=== PATIENT | female | born 1940 | race Caucasian/White ===

== ENCOUNTER 2016-12-21 06:00 | Inpatient (IN) | payer MEDICARE, BC ==
[~2016-12-21] VITALS: Ht 167.6 cm; Wt 65.4 kg
[~2016-12-21 06:00] MED LIST: AMBIEN10 MG OR; ASA LO-DOSE81 MG OR; BACTRIM DS1 TAB PO; BL ADULT ASA81 MG OR; BLEPH-1010 % OU; CARDIZEM CD240 MG PO; CARTIA XT120 MG/24 PO; COREG6.25 MG OR; COUMADIN2.5 MG OR; COUMADIN3 MG OR; COUMADIN3 MG PO; COUMADIN4 MG PO; DILTIAZEM OR; DILTIAZEM120 MG PO; DILTIAZEM240 M1 OR; ESCITALOPRAM OX10 MG PO; FLEXERIL OR; FLEXERIL5 M1 PO; FUROSEMIDE20 MG PO; GABAPENTIN100 MG PO; HYDROCO/APAP1 T13 PO; KLOR-CON M2020 MEQ PO; LANOXIN0.125 MG OR; LANSOPRAZOLE15 MG PO; METOPROL TAR25 M1 PO; METOPROL TAR25 MG PO; NEXIUM40 M1 OR; OXYCODO-APAP1 TA2 PO; PLAVIX75 MG OR; POTASSIUM CHLO10 ME1 PO; PRAVACHOL40 MG OR; PRAVASTATIN80 MG OR; PRILOSEC20 MG OR; PRILOSEC20 MG PO; PROTONIX40 MG OR; PYRIDIUM200 MG PO; RISPERIDONE0.5 MG PO; SOTALOL AF120 MG OR; TOPROL XL25 MG OR; TYLENOL500 MG OR; WARFARIN1 MG OR; XANAX0.25 MG PO; XANAX0.5 MG OR; XANAX0.5 MG PO; ZETA PO; ZOCOR40 MG OR
--- NOTE | 2016-12-21 06:00 | NUR ---
PT. IMMEDIATELY TO TREATMENT ROOM #10 VIA EMS ON ARRIVAL TO ED
[2016-12-21 06:25] LABS: HEMATOCRIT 38.2 % (37.0-47.0); HEMOGLOBIN 12.6 g/dl (12.0-16.0); IMMATURE GRANULOCYTES 0.5 % (0.0-1.0); MEAN CELL VOLUME 83.6 fL CALC (80.0-100.0); MEAN CORPUSCULAR HGB 27.6 pG CALC (26.0-32.0); NEUT# 11.47 thou/uL (2.00-7.15); RED BLOOD COUNT 4.57 mill/uL (4.20-5.60); RED CELL DISTRI WIDTH 15.7 % (11.5-15.5)
[2016-12-21] MEDS ORDERED: COUMADIN2 MG PO (06:28)
[2016-12-21 06:39] LABS: ALBUMIN 4.5 g/dL (3.2-5.0); ALKALINE PHOSPHATASE 111 u/l (38-126); ANION GAP 17 (6-22 (CALC)); BUN 15 mg/dL (8-23); BUN/CREATININE RATIO 17 (12-20 (CALC)); CALCIUM 9.7 mg/dL (8.4-10.2); CARBON DIOXIDE 24 mmol/l (22-30); CHLORIDE 101 mmol/l (95-108); CREATININE 0.9 mg/dL (0.5-1.0); GFR > 60 ML/MIN (>=60 (CALC)); GFR FOR AFR.AMER. > 60 ML/MIN (>=60 (CALC)); GLUCOSE 150 mg/dL (82-115); SGOT/AST 36 u/l (9-36); SGPT/ALT 28 u/l (11-66); SODIUM 138 mmol/l (137-146); TOTAL PROTEIN 7.8 g/dL (6.3-8.2)
--- NOTE | 2016-12-21 06:47 | NUR ---
RETURNED FROM CT WITH C COLLAR AND ON BACK BOARD VIA [facility]
--- NOTE | 2016-12-21 06:48 | NUR ---
PT RETURNED FROM CT ALERT AND CONFUSED PER USUAL. RT EYE SWOLLEN SHUT AND ECCYMOSIS NOTED TO RT EYELID AND ENTIRE ORBIT. CARDAIC MONITOR APPLIED. VSS. NOTED ABRAISED AREA TO RT KNEE WITHOUT BRUISING. RT NARE HAS DRIED BLOOD, NO ACITVE BLEEDING
--- NOTE | 2016-12-21 07:05 | NUR ---
OBTAINED URINE BY STRAIGHT CATH,PT TOLERATED WELL, CONTINUES TO BE IMMOBILIZED
[2016-12-21 07:23] LABS: URINE BILIRUBIN - DIPSTICK NEGATIVE (NEGATIVE); URINE BLOOD DIPSTICK LARGE (NEGATIVE); URINE CLARITY CLEAR; URINE COLOR YELLOW; URINE GLUCOSE - DIPSTICK NEGATIVE (NEGATIVE); URINE KETONE TRACE mg/dL (NEGATIVE); URINE PROTEIN - DIPSTICK 30 mg/dL (NEG-TRACE); URINE SPECIFIC GRAVITY 1.015; URINE UROBILINOGEN - DIPSTICK 0.2 E.U./dL (0.2)
[2016-12-21 07:25] LABS: URINE LEUK ESTERASE SMALL (NEGATIVE)
[2016-12-21 07:29] LABS: URINE NITRITE - DIPSTICK NEGATIVE (Negative)
[2016-12-21 07:32] LABS: URINE BACTERIA RARE hpf; URINE EPITHELIAL CELLS RARE EPI/hpf (0-FEW)
[2016-12-21 07:39] LABS: INTERNATIONAL NORMALIZED RATIO 2.6 RATIO (0.7-1.3); PROTHROMBIN TIME 29.8 SECONDS (9.0-12.5)
--- NOTE | 2016-12-21 08:01 | NUR ---
KEENAN SCANNED BUT HELD UNTIL BC DRAWN
--- NOTE | 2016-12-21 08:01 | NUR ---
FAMILY INFORMED OF ADMISSION AND PT MADE COMFORTABLE. ALL JEWELRY INCLUDING EARRINGS,RINGS AND NECKLACE GIVEN TO SON AND DAUGHTER IN LAW
--- NOTE | 2016-12-21 08:33 | NUR ---
INITIATED IV FLUIDS AND ROCEPHINE
--- NOTE | 2016-12-21 08:54 | NUR ---
CALLED REPORT TO LISA CAMPUZANO
--- NOTE | 2016-12-21 09:00 | NUR ---
PT TO ROOM VIA STRETCHER ACCOMPANIED BY STAFF; PT AMBULATORY WITH MIN ASSIST; PT A/ ORIENTED TO NAME ONLY, REORIENTATION TO TIME AND PLACE UNSUCCESSFUL; PT HAD UNWITNESS FALL AT LONG TERM; BRUISING NOTED TO RT EYE AND RT SHOULDER; RT KNEE WITH [facility] [employer] OPERATIONS SPECIALIST; PT C/O PAIN TO RT FOOT AND CHEST AREA, UNABLE TO VERBALIZE PAIN SCALE; BED ALARM IN PLACE FOR PT SAFETY; TELE MONITOR IN PLACE; CALL BUCHANAN WITHIN REACH; WILL CONTINUE TO MONITOR.
--- NOTE | 2016-12-21 09:03 | NUR ---
URINE IS CLEAR USED THE BED HARRELL 300CC
--- NOTE | 2016-12-21 09:10 | NUR ---
PT TRANSPORTED TO [facility] VIA STRETCHER ON TELEMETRY IN STABLE CONDITION
[2016-12-21 09:24] VITALS: BP 178/68
--- NOTE | 2016-12-21 12:30 | NUR ---
DR. SONG IN TO SEE PT; PLAN OF CARE DISCUSSED WITH FAMILY
[2016-12-21 12:46] VITALS: BP 129/64
[2016-12-21 15:07] VITALS: BP 141/55
--- NOTE | 2016-12-21 16:11 | NUR ---
PT HAD 2 EPISODES OF 8 BEAT RUN VTACH; VSS; PT STABLE; C/O PAIN R/T TO FALL THIS AM; MD NOTIFIED; CALL BUCHANAN WITHIN REACH; BED ALARM IN PLACE FOR SAFETY; WILL CONTINUE TO MONITOR.
--- NOTE | 2016-12-21 18:17 | NUR ---
PT ASSISTED BACK TO BED; BED ALARM IN PLACE FOR SAFETY; SON IN TO VISIT; CALL BUCHANAN WITHIN REACH; WILL CONTINUE TO MONITOR.
--- NOTE | 2016-12-21 19:15 | NUR ---
RESPONDED TO PATIENT BED ALARM AND PATIENT ASSISTED TO BSC TO VOID CLEAR YELLOW URINE. ASSISTED BACK TO BED. PATIENT WITH HISTORY OF DEMENTIA NAD FALLS. PATIENT WITH ECCYMOTTIC RIGHT EYE AND RIGHT SHOULDER WITH [facility] TO RIGHT KNEE. PATIENT WITH IV SITE TO RIGHT AC NS 50CC/HR. SITE APPEARS HEALTHY AT THIS TIME. PATIENT C/O SEVERE HEADACHE AND BACK PAIN. WILL MEDICATED. PATIENT IS IMPULSIVE AND CONFUSED TO PLACE AND TIME. BED ALARMS IN PLACE FOR PATIENT SAFETY. CALL LIGHT IN REACH. WILL CONT TO MONITOR.
[2016-12-21 19:40] VITALS: BP 156/70
--- NOTE | 2016-12-22 00:04 | NUR ---
PATIENT APPEARS SLEEPING AT THIS TIME WITH EYES CLOSED. BED ALARMS IN PLACE FOR PATIENT SAFETY. CALL LIGHT IN REACH. WILL CONT TO MONITOR.
[2016-12-22 00:15] VITALS: BP 145/70
--- NOTE | 2016-12-22 00:53 | NUR ---
PATIENT MEDICATED FOR PAIN WITH PERCOCET ORDERED. PATIENT TURNED AND REPOSITIONED ON SIDE. BED ALARMS IN PLACE FOR PATIENT SAFETY. CALL LIGHT IN REACH. WILL CONT TO MONITOR.
--- NOTE | 2016-12-22 04:00 | NUR ---
PATIENT RESTING IN BED AND APPEARS SLEEPING AT THIS TIME. CALL LIGHT IN REACH. WILL CONT TO MONITOR.
[2016-12-22 05:45] VITALS: BP 132/78
[2016-12-22 06:24] LABS: HEMATOCRIT 34.1 % (37.0-47.0); HEMOGLOBIN 11.1 g/dl (12.0-16.0); IMMATURE GRANULOCYTES 0.8 % (0.0-1.0); MEAN CELL VOLUME 84.6 fL CALC (80.0-100.0); MEAN CORPUSCULAR HGB 27.5 pG CALC (26.0-32.0); MEAN CORPUSCULAR HGB CONC 32.6 g/L CALC (32.0-36.0); NEUT# 4.9 thou/uL (2.00-7.15); RED BLOOD COUNT 4.03 mill/uL (4.20-5.60); RED CELL DISTRI WIDTH 15.7 % (11.5-15.5)
[2016-12-22 06:38] LABS: ANION GAP 12 (6-22 (CALC)); BUN 10 mg/dL (8-23); BUN/CREATININE RATIO 14 (12-20 (CALC)); CARBON DIOXIDE 26 mmol/l (22-30); CHLORIDE 107 mmol/l (95-108); CREATININE 0.7 mg/dL (0.5-1.0); GFR > 60 ML/MIN (>=60 (CALC)); GFR FOR AFR.AMER. > 60 ML/MIN (>=60 (CALC)); GLUCOSE 101 mg/dL (82-115); POTASSIUM 3.6 mmol/l (3.5-5.1); SODIUM 140 mmol/l (137-146)
[2016-12-22 07:10] LABS: INTERNATIONAL NORMALIZED RATIO 2.2 RATIO (0.7-1.3); PROTHROMBIN TIME 25.2 SECONDS (9.0-12.5)
[2016-12-22 08:25] VITALS: BP 102/61
[2016-12-22 10:54] VITALS: BP 133/78
[2016-12-22] MEDS ORDERED: KEFLEX500 MG PO (12:22)
--- NOTE | 2016-12-22 13:29 | NUR ---
Discharge instructions given. Patient verbalizes understanding of same. Discharged in stable condition via Wheelchair to [facility] with [facility]AFF. All belongings sent with pt.
[2016-12-23] MEDS ORDERED: PREDNISONE10 MG PO (14:35)
[2016-12-23] MEDS ORDERED: VENTOLIN HFA IN (14:35)
[2016-12-23] MEDS ORDERED: ZITHROMAX250 MG PO (14:35)
== END 2016-12-22 13:28 | DRG 565 ==
LOC: ENPENDDIS → ED 06:00 → ED-I 07:55 → ED 08:25 → MS2 08:26
PROVIDERS: Emergency Medicine; ADMIT Internal Medicine; ATTEND Internal Medicine
DX: S02.81XA Fracture of other specified skull and facial bones, right side, initial encounter for closed fracture (principal); S02.40EA Zygomatic fracture, right side, initial encounter for closed fracture; I50.9 Heart failure, unspecified; F03.90 Unspecified dementia, unspecified severity, without behavioral disturbance, psychotic disturbance, mood disturbance, and anxiety; N39.0 Urinary tract infection, site not specified; Y92.129 Unspecified place in nursing home as the place of occurrence of the external cause; I25.10 Atherosclerotic heart disease of native coronary artery without angina pectoris; E78.5 Hyperlipidemia, unspecified; I48.91 Unspecified atrial fibrillation; W19.XXXA Unspecified fall, initial encounter; Z95.0 Presence of cardiac pacemaker; Z79.01 Long term (current) use of anticoagulants

== ENCOUNTER 2016-12-23 10:50 | Emergency (ER) | payer MEDICARE, BC ==
[~2016-12-23] VITALS: Ht 167.6 cm; Wt 68.0 kg
[~2016-12-23 10:50] MED LIST changes: +COUMADIN2 MG PO; +KEFLEX500 MG PO
[2016-12-23 11:50] LABS: HEMATOCRIT 36.2 % (37.0-47.0); HEMOGLOBIN 11.5 g/dl (12.0-16.0); IMMATURE GRANULOCYTES 0.4 % (0.0-1.0); MEAN CELL VOLUME 85.8 fL CALC (80.0-100.0); MEAN CORPUSCULAR HGB 27.3 pG CALC (26.0-32.0); MEAN CORPUSCULAR HGB CONC 31.8 g/L CALC (32.0-36.0); NEUT# 6.95 thou/uL (2.00-7.15); RED BLOOD COUNT 4.22 mill/uL (4.20-5.60); RED CELL DISTRI WIDTH 15.6 % (11.5-15.5)
[2016-12-23 12:05] LABS: INTERNATIONAL NORMALIZED RATIO 1.8 RATIO (0.7-1.3); PROTHROMBIN TIME 20.2 SECONDS (9.0-12.5)
[2016-12-23 12:07] LABS: ALBUMIN 3.9 g/dL (3.2-5.0); ALKALINE PHOSPHATASE 84 u/l (38-126); ANION GAP 16 (6-22 (CALC)); BILIRUBIN, TOTAL 0.8 mg/dL (0.0-1.4); BUN 14 mg/dL (8-23); BUN/CREATININE RATIO 14 (12-20 (CALC)); CALCIUM 9.3 mg/dL (8.4-10.2); CARBON DIOXIDE 29 mmol/l (22-30); CHLORIDE 102 mmol/l (95-108); GFR 54 ML/MIN (>=60 (CALC)); GFR FOR AFR.AMER. > 60 ML/MIN (>=60 (CALC)); GLUCOSE 100 mg/dL (82-115); POTASSIUM 3.8 mmol/l (3.5-5.1); SGOT/AST 46 u/l (9-36); SGPT/ALT 33 u/l (11-66); SODIUM 143 mmol/l (137-146); TOTAL PROTEIN 7.5 g/dL (6.3-8.2)
[2016-12-23 12:25] LABS: MYOGLOBIN 501 ng/mL (0 - 62)
[2016-12-23] MEDS ORDERED: VENTOLIN HFA IN (14:35)
[2016-12-23] MEDS ORDERED: PREDNISONE10 MG PO (14:35)
[2016-12-23] MEDS ORDERED: ZITHROMAX250 MG PO (14:35)
[2016-12-23 14:42] VITALS: BP 196/72
== END 2016-12-23 14:50 | disposition home or self-care (01) ==
LOC: ED 10:50
PROVIDERS: Emergency Medicine
DX: J20.9 Acute bronchitis, unspecified (principal); R06.2 Wheezing; R06.02 Shortness of breath; Z95.0 Presence of cardiac pacemaker

== ENCOUNTER 2017-09-11 11:17 | Inpatient (IN) | payer MEDICARE, BC ==
[~2017-09-11] VITALS: Ht 167.6 cm; Wt 60.0 kg
[2017-09-11] VITALS (12 sets, daily range): BP systolic 82–154; BP diastolic 43–70
[~2017-09-11 11:17] MED LIST changes: +PREDNISONE10 MG PO; +VENTOLIN HFA IN; +ZITHROMAX250 MG PO
--- NOTE | 2017-09-11 11:20 | NUR ---
PT BROUGHT TO ER PER EMS, STATES PT WAS SHAKING WITH UPPER ARMS ONLY AT FACILITY SHE WAS AT. NO INCONTINENCE, LEGS WERE NOT SHAKING. PT HAS HX OF CONFUSION UNABLE TO ANSWER QUESTIONS. WHILE TRYING FOR IV ACCESS, PTS HEART RHYTHM CHANGED TO VTACH IN THE 175-180, CHARGE NURSE NOTIFIED, PT REMAINED AWAKE DURING THIS TIME, NO SHAKING AT THIS TIME, EJ PLACED INTO LEFT SIDE OF NECK, WITH BLOOD DRAWN , CRASH CART BROUGHT TO ROOM, PADS PLACED ON, AMIODRONE 150MG OVER 10 MIN GIVEN PER FRANCIS RN, AT SAME TIME PT WAS SEEN IN POLYMORPHIC VT, IMMEDIATELY CAME BACK TO [facility].
[2017-09-11 11:44] LABS: HEMATOCRIT 29.8 % (37.0-47.0); HEMOGLOBIN 9.4 g/dl (12.0-16.0); IMMATURE GRANULOCYTES 0.7 % (0.0-1.0); MEAN CELL VOLUME 86.6 fL CALC (80.0-100.0); MEAN CORPUSCULAR HGB 27.3 pG CALC (26.0-32.0); MEAN CORPUSCULAR HGB CONC 31.5 g/L CALC (32.0-36.0); NEUT# 11.9 thou/uL (2.00-7.15); RED BLOOD COUNT 3.44 mill/uL (4.20-5.60); RED CELL DISTRI WIDTH 17.9 % (11.5-15.5)
--- NOTE | 2017-09-11 11:49 | NUR ---
NOTICED AN IDOVENTRICULAR RHYTHM ON MONITER WHILE STARTING AMIODORONE DRIP , FRANCIS GONZALEZ. PLACED MAGNET ON PACEMAKER AND MONITER STRIP READ SINUS RHYTHM IN THE 90'S, CONTINUE TO MONITER PT. DAUGHTER AT BEDSIDE, FLUIDS INFUSING, PT REMAINS AWAKE AND NORMAL FOR HER.
[2017-09-11] MEDS ORDERED: LEVOCETIRIZINE D5 MG PO (12:10)
[2017-09-11] MEDS ORDERED: PLAVIX75 MG PO (12:10)
[2017-09-11] MEDS ORDERED: XARELTO10 MG PO (12:11)
[2017-09-11] MEDS ORDERED: ASPIRIN81 MG PO (12:11)
[2017-09-11 12:24] LABS: TSH, 3RD GENERATION 5.38 uIU/mL (0.47 - 4.68)
--- NOTE | 2017-09-11 12:29 | NUR ---
FAMILY AT BEDSIDE TALKING WITH PT. THEY ARE SPEAKING WITH FRANCIS GONZALEZ. ABOUT POSSIBLE DNR STATUS.
[2017-09-11 12:52] LABS: ALBUMIN 3.7 g/dL (3.2-5.0); ALKALINE PHOSPHATASE 116 u/l (38-126); ANION GAP 22 (6-22 (CALC)); BILIRUBIN, TOTAL 0.6 mg/dL (0.0-1.4); BUN 17 mg/dL (8-23); BUN/CREATININE RATIO 17 (12-20 (CALC)); CARBON DIOXIDE 23 mmol/l (22-30); CHLORIDE 96 mmol/l (95-108); GFR 54 ML/MIN (>=60 (CALC)); GFR FOR AFR.AMER. > 60 ML/MIN (>=60 (CALC)); POTASSIUM 3.8 mmol/l (3.5-5.1); SGOT/AST 51 u/l (9-36); SGPT/ALT 28 u/l (11-66); SODIUM 137 mmol/l (137-146); TOTAL PROTEIN 6.9 g/dL (6.3-8.2)
--- NOTE | 2017-09-11 12:59 | NUR ---
PT IN PACED AFIB RHYTHM
--- NOTE | 2017-09-11 13:15 | NUR ---
PTS FAMILY SIGNED DNR PER DR. GILL.
--- NOTE | 2017-09-11 13:41 | NUR ---
PT ASKING FOR BED HARRELL, IS ABLE TO LIFT BUTTOCKS UP AND FOLLOW COMMANDS. RHYTHM CONTINUES TO BE PACED A FIB. RATE OF 70'S
--- NOTE | 2017-09-11 14:03 | NUR ---
SPEAKING WITH PTS FAMILY THEY STATED PT HAD STENTS PLACED 2 MONTHS AGO, THEN ON Aug PT WENT INTO CARDIAC ARREST SHE CAME THRU AND DOCTORS WANTED TO REPLACE HER PACEMAKER WITH A DEF/PACEMAKER, FAMILY STATES THEY REFUSED BECAUSE OF HER AGE AND DEMENTIA. THEY ARE STATING THAT THEY ARE WANTING SOME HELP TO PUT HER INTO HOSPICE CARE WHEN SHE IS DISCHARGED FROM HOSPITAL.
--- NOTE | 2017-09-11 14:15 | NUR ---
PT MONITER SHOWING RUNS OF POLYMORPHIC VTACH AGAIN, AND THEN GOES BACK INTO PACED RHYTHM EVERY MIN OR SO.
--- NOTE | 2017-09-11 14:30 | NUR ---
MAGNESIUM ORDERED FOR RUNS OF TORSADES, PT REPORT GIVEN, PT TAKEN TO FLOOR AND MAGNESIUM WILL BE DELIVERED TO ICU.
--- NOTE | 2017-09-11 14:45 | NUR ---
PT ADMITTED TO ICU BED 3 VIA STRECTHER FROM ER, PT ALERT BUT CONFUSED, ABLE TO STATE NAME BUT MOST ALL OTHER ANSWERS COMPLETELTY INAPPROPRIATE TO QUESTIONS ASKED, HISTORY OBTAINED FROM SON AND DAUGHTER, LUNGS ARE CLEAR WITH NO SHORTNESS OF BREATH OR DISTRESS NOTED, O2 ON AT 2L VIA NC, SKIN INTACT WITH ECCHYMOTIC AREAS NOTED TO BILATERAL UE, NO EDEMA NOTED, VS STABLE PT AFEBRILE, TELE READING PACED WITH NO ECTOPY OR ARRYTHMIA NOTED AT THIS TIME (REASON FOR ADMIT) PT INCONTINENT PER FAMILY, [facility] PROVIDED ALL MONITORING EQUIPMENT EXPLAINED PRIOR TO APPLICATION, IV SITE INTACT IN LEJ WITH AMIODARONE GTT PER PROTOCOL, PT TO HAVE MAGNESIUM BOLUS, WILL ATTEMPT 2nd IV ACCESS, RELATED TO INCOMPABAILITY OF MEDS, ORIENTED TO ROOM AND UNIT WILL REDIRECT PRN, CALL BUCHANAN WITHIN REACH.
--- NOTE | 2017-09-11 16:15 | NUR ---
PT RESTING, FAMILY MEMBERS AT BEDSIDE, NO S/S OF DISTRESS NO TELE CHANGES NOTED, WILL CONTINUE TO MONITOR.
--- NOTE | 2017-09-11 17:25 | NUR ---
PT TOOK PO MEDICATION IN PUDDING WELL AND W/O INCIDENT, FAMILY MEMBERS REMAIN AT BEDSIDE
--- NOTE | 2017-09-11 18:00 | NUR ---
FAMILY MEMBERS AT BEDSIDE AND ASSISTED PT WITH PM MEAL, CALL BUCHANAN WITHIN REACH, AMIODARONE GTT CONTINUES TELE READING PACED RATE STEADY AT 60 NO ARTIFACT OR ARRYHTMIAS NOTED
--- NOTE | 2017-09-11 18:41 | NUR ---
FAMILY MEMBERS REMAIN AT BEDSIDE, CALL BUCHANAN WITHIN REACH, TOLERATED PM MEAL WELL.
--- NOTE | 2017-09-11 19:30 | NUR ---
PT RESTING IN BED. FAMILY AT BEDSIDE. PT IS ALERT. ORIETNED TO SELF. PERRLA. RESP ARE EVEN AND UNLABORED. NO DISTRESS NOTED. LUNGS ARE CLEAR. HR REGULAR. PULSES ARE PALPABLE THROUGHOUT. NO EDEMA NOTED. BS ACTIVE. #20 LEFT EJ WITH NS @KVO AND AMIODARONE INFUSING AND #24 RIGHT WRIST SALINE LOCKED NO REDNESS OR EDEMA NOTED. WILL CONTINUE TO MONITOR
--- NOTE | 2017-09-11 21:00 | NUR ---
PT MEDICATED WITH PERCOCET FOR GROANING
--- NOTE | 2017-09-11 22:00 | NUR ---
PT CONTINUES MOANING IN BED. RESP ARE EVEN AND UNLABORED. ENCOURAGED PT TO TAKE NICE SLOW DEEP BREATHS. PT VERBALIZED UNDERSTANDING.
--- NOTE | 2017-09-11 22:40 | NUR ---
FAMILY RETURN TO BEDSIDE
--- NOTE | 2017-09-11 22:53 | NUR ---
PT PULLED OUT LEFT EJ CATH TIP INTACT.
--- NOTE | 2017-09-11 23:35 | NUR ---
#22 STARTED IN LFA x1 ATTEMPT. PT TOLERATED WELL. PT HAD LARGE AMOUNT OF URINE INCONTINUENCE AND SMALL AMOUNT OF STOOL INCONTINENCE. BED BATH GIVEN AND COMPLETE LINEN CHANGE PROVIDED. PATIENT TOLERATED WELL .
[2017-09-12] VITALS (10 sets, daily range): BP systolic 133–170; BP diastolic 62–91
--- NOTE | 2017-09-12 00:20 | NUR ---
PT RESTING IN BED WITH EYES CLOSED. DAUGHTER REMAINS AT BEDDISE. RESP ARE EVEN AND UNLABORED. NO DISTRESS NOTED. WILL CONTINUE TO MONITOR
--- NOTE | 2017-09-12 02:22 | NUR ---
PT RESTING IN BED WITH EYES CLOSED. RESP ARE EVEN AND UNLABORED. NO DISTRESS NOTED WILL CONTINUE TO MONITOR
--- NOTE | 2017-09-12 04:20 | NUR ---
PT RESTING IN BED WITH EYES CLOSED. RESP ARE EVEN AND UNLABORED. NO DISTRESS NOTED. WILL CONTINUE TO MONITOR
--- NOTE | 2017-09-12 05:16 | NUR ---
PT HAD SMALL BOWEL MOVEMEMNT. PT CLEANED UP. PT TOLERATED WELL.
--- NOTE | 2017-09-12 05:48 | NUR ---
PT RESTING IN BED WITH YES CLOSED. RESP ARE EVEN AND UNLABORED. NO DISTRESS NOTED WILL CONTINUE TO MONITOR
--- NOTE | 2017-09-12 07:25 | NUR ---
PT RESTING IN BED WITH EYES CLOSED, LUNGS ARE CLEAR WITH NO SHORTNESS OF BREATH OR DISTRESS NOTED, O2 ON AT 2L VIA NC, SKIN INTACT WITH ECCHYMOTIC AREAS NOTED TO BILATERAL UE, NO EDEMA NOTED, VS STABLE PT AFEBRILE, TELE READING PACED WITH NO ECTOPY OR ARRYTHMIA NOTED AT THIS TIME (6 BEAT RUN OF V-TACH ON PREVIOUS SHIFT PER REPORT) ) PT INCONTINENT PER FAMILY, ADULT BRIEF IN PLACE, IV SITE INTACT IN LFA WITH AMIODARONE GTT PER PROTOCOL, OFFERS NO COMPLAINTS AND NO S/S OF DISTRESS OR DISCOMFORT NOTED, PT REMAINS CONFUSED BUT FOLLOWS BASIC COMMANDS, WILL REOIRENT / REDIRECT PRN, CALL BUCHANAN WITHIN REACH.
--- NOTE | 2017-09-12 08:22 | NUR ---
DAUGHTER AT BEDSIDE, AM MEAL REMAINS IN ROOM.
--- NOTE | 2017-09-12 08:30 | NUR ---
AM MEAL WARMED AND DAUGHTER AT BEDSIDE ASSISTING WITH INTAKE.
--- NOTE | 2017-09-12 09:01 | NUR ---
PT HAS NO BEEN AMBULATORY SINCE 2 MONTHS AGO WHEN SHE HAD STENTS PLACED ETC.. PER DAUGHTER, ALSO STATED SHE HAD BEEN ON A PUREE DIET UNTIL RECENTLY RELATED TO TROUBLE SWALLOWING, STATES SHE HAS BEEN BACK ON A REGULAR CONSISITENCY DIET FOR A LITTLE WHILE NOW AND TOELRAING WELL, DAUGHTER CUT FOOD FOR PT AND CUT IT INTO VERY SMALL PIECES, PT HAS MECHANICAL SOFT DIET ORDERED, WILL MONITOR CLOSELY FOR TOLERANCE.
--- NOTE | 2017-09-12 10:04 | NUR ---
PT DISIMPACTED OF MODERATE AMOUNT HARD/FORMED STOOL, PT TOLERATED WITH MINIMAL DISCOMFORT, DAUGHTER AT BEDSIDE WITH PT, [facility] PROVIDED AND LINES CHANGED ADULT BRIEF PLACED, CALL CHANEL JONES.
--- NOTE | 2017-09-12 11:01 | NUR ---
IN AND SPOKE IWHT FAMILY AND PT REGARDING D/C, CALL BUCHANAN WITHIN REACH, FAMILY MEMBERS REMAIN AT BEDSIDE
--- NOTE | 2017-09-12 12:06 | NUR ---
RESTING, SET UP ASSIST PROVIDED FOR AFTERNOON MEAL, AGAIN MADE SURE FOOD WAS CUT UP SMALL FOR IMPROVED TOLERANCE. WILL CONTINUE TO MONITOR.
[2017-09-12] MEDS ORDERED: CORDARONE/200 MG/TAB PO (13:00)
--- NOTE | 2017-09-12 13:01 | NUR ---
FAMILY AWARE OF PLANNED D/C TODAY BACK TO [facility], FAMILY REQUESTING THE [facility] TO TRANSPORT PT BACK, CASE [facility] NOTIFIED.
[2017-09-12] MEDS ORDERED: MIRALAX3350 NF PO (14:08)
[2017-09-12] MEDS ORDERED: COLACE100 MG PO (14:08)
--- NOTE | 2017-09-12 14:10 | NUR ---
[facility] STAFF MEMBER HERE WITH WHEELCHAIR FOR TRANSFER BACK TO [facility], NEW SCRIPTS SENT WITH SON TO GET FILLED, UPDATED ORDERS FAXED TO [facility]. FAMILY AT BEDSIDE AT TIME OF TRANSFER, PT TOLERATED TRASNFER WELL, ALL BELONGINGS SENT WITH FAMILY.
== END 2017-09-12 14:10 | DRG 310 ==
LOC: ED 11:17 → ED-I 13:12 → ED 13:55 → ICU 13:56
PROVIDERS: Emergency Medicine; ADMIT Internal Medicine; ATTEND Internal Medicine
DX: I47.2 Ventricular tachycardia (principal); I11.0 Hypertensive heart disease with heart failure; I50.9 Heart failure, unspecified; Z86.74 Personal history of sudden cardiac arrest; F03.90 Unspecified dementia, unspecified severity, without behavioral disturbance, psychotic disturbance, mood disturbance, and anxiety; I48.91 Unspecified atrial fibrillation; F41.9 Anxiety disorder, unspecified; K56.41 Fecal impaction; I25.10 Atherosclerotic heart disease of native coronary artery without angina pectoris; E78.5 Hyperlipidemia, unspecified; Z95.0 Presence of cardiac pacemaker; Z66 Do not resuscitate; Z95.5 Presence of coronary angioplasty implant and graft
CPT/HCPCS: J0282; J3475

== ENCOUNTER 2017-09-15 18:42 | Emergency (ER) | payer MEDICARE, BC ==
[~2017-09-15] VITALS: Ht 167.6 cm; Wt 70.0 kg
[~2017-09-15 18:42] MED LIST changes: +ASPIRIN81 MG PO; +COLACE100 MG PO; +CORDARONE/200 MG/TAB PO; +LEVOCETIRIZINE D5 MG PO; +MIRALAX3350 NF PO; +PLAVIX75 MG PO; +XARELTO10 MG PO
[2017-09-15 19:26] LABS: HEMOGLOBIN 9.5 g/dl (12.0-16.0); IMMATURE GRANULOCYTES 0.7 % (0.0-1.0); MEAN CELL VOLUME 87.7 fL CALC (80.0-100.0); MEAN CORPUSCULAR HGB 27.8 pG CALC (26.0-32.0); MEAN CORPUSCULAR HGB CONC 31.7 g/L CALC (32.0-36.0); NEUT# 10.1 thou/uL (2.00-7.15); RED BLOOD COUNT 3.42 mill/uL (4.20-5.60)
[2017-09-15] MEDS ORDERED: AMIODARONE200 MG PO (19:36)
[2017-09-15] MEDS ORDERED: MYRBETRIQ25 MG PO (19:38)
[2017-09-15] MEDS ORDERED: REFRESH TEAR0.5 % OU (19:40)
[2017-09-15] MEDS ORDERED: NITROFUR MAC50 M1 PO (19:42)
[2017-09-15 19:44] LABS: INTERNATIONAL NORMALIZED RATIO 1.2 RATIO (0.7-1.3); PROTHROMBIN TIME 13.4 SECONDS (9.0-12.5)
[2017-09-15 19:45] LABS: ALBUMIN 3.7 g/dL (3.2-5.0); ALKALINE PHOSPHATASE 130 u/l (38-126); ANION GAP 22 (6-22 (CALC)); BILIRUBIN, TOTAL 0.5 mg/dL (0.0-1.4); BUN 13 mg/dL (8-23); BUN/CREATININE RATIO 13 (12-20 (CALC)); CARBON DIOXIDE 23 mmol/l (22-30); CHLORIDE 96 mmol/l (95-108); GFR 54 ML/MIN (>=60 (CALC)); GFR FOR AFR.AMER. > 60 ML/MIN (>=60 (CALC)); POTASSIUM 3.5 mmol/l (3.5-5.1); SGOT/AST 152 u/l (9-36); SGPT/ALT 227 u/l (11-66); SODIUM 137 mmol/l (137-146); TOTAL PROTEIN 6.8 g/dL (6.3-8.2)
[2017-09-15 19:57] LABS: MYOGLOBIN 72 ng/mL (0 - 62)
[2017-09-16 00:10] VITALS: BP 178/89
== END 2017-09-16 00:20 | disposition home or self-care (01) ==
LOC: ED 18:42
PROVIDERS: Emergency Medicine
DX: R07.89 Other chest pain (principal); I13.10 Hypertensive heart and chronic kidney disease without heart failure, with stage 1 through stage 4 chronic kidney disease, or unspecified chronic kidney disease; N18.9 Chronic kidney disease, unspecified; M19.90 Unspecified osteoarthritis, unspecified site

== ENCOUNTER 2017-11-19 14:57 | Inpatient (IN) | payer MEDICARE, BC ==
[~2017-11-19] VITALS: Ht 167.6 cm; Wt 62.6 kg
[~2017-11-19 14:57] MED LIST changes: +AMIODARONE200 MG PO; +MYRBETRIQ25 MG PO; +NITROFUR MAC50 M1 PO; +REFRESH TEAR0.5 % OU
[2017-11-19 17:07] LABS: URINE BILIRUBIN - DIPSTICK NEGATIVE (NEGATIVE); URINE BLOOD DIPSTICK NEGATIVE (NEGATIVE); URINE COLOR YELLOW; URINE GLUCOSE - DIPSTICK NEGATIVE (NEGATIVE); URINE KETONE NEGATIVE (NEGATIVE); URINE NITRITE - DIPSTICK NEGATIVE (Negative); URINE PH 6.5 (4.5-8.0); URINE PROTEIN - DIPSTICK NEGATIVE (NEG-TRACE); URINE UROBILINOGEN - DIPSTICK 0.2 E.U./dL (0.2)
[2017-11-19 17:12] LABS: URINE CLARITY CLEAR; URINE LEUK ESTERASE SMALL (NEGATIVE)
[2017-11-19 17:17] LABS: HEMOGLOBIN 10.2 g/dl (12.0-16.0); IMMATURE GRANULOCYTES 0.5 % (0.0-1.0); MEAN CORPUSCULAR HGB 25.4 pG CALC (26.0-32.0); MEAN CORPUSCULAR HGB CONC 30.9 g/L CALC (32.0-36.0); NEUT# 12.91 thou/uL (2.00-7.15); RED BLOOD COUNT 4.02 mill/uL (4.20-5.60); RED CELL DISTRI WIDTH 17.1 % (11.5-15.5)
[2017-11-19 17:23] LABS: MEAN CELL VOLUME 82.1 fL CALC (80.0-100.0); PROTHROMBIN TIME 11.6 SECONDS (9.0-12.5)
[2017-11-19 17:25] LABS: ALBUMIN 3.6 g/dL (3.2-5.0); BILIRUBIN, TOTAL 0.5 mg/dL (0.0-1.4); CREATININE 1.3 mg/dL (0.5-1.0); URINE BACTERIA FEW hpf; URINE SQUAMOUS EPITHELIAL CELL FEW EPI/hpf (0-FEW); URINE WBC 20-50 WBC/hpf (0-5)
[2017-11-19 17:26] LABS: POTASSIUM 4.4 mmol/l (3.5-5.1)
[2017-11-19 18:35] VITALS: BP 102/51
== END 2017-11-19 19:00 | disposition short-term general hospital (02) | DRG 562 ==
LOC: ED 14:57 → ED-I 16:09 → ED 16:26 → MS2 16:27
PROVIDERS: Family Medicine; ADMIT Internal Medicine; ATTEND Internal Medicine
PROC: 0T9B70Z Drainage of Bladder with Drainage Device, Via Natural or Artificial Opening (ICD-10-PCS; principal; 2017-11-19)
DX: S42.291A Other displaced fracture of upper end of right humerus, initial encounter for closed fracture (principal); S72.141A Displaced intertrochanteric fracture of right femur, initial encounter for closed fracture; I11.0 Hypertensive heart disease with heart failure; I48.91 Unspecified atrial fibrillation; I50.9 Heart failure, unspecified; F03.90 Unspecified dementia, unspecified severity, without behavioral disturbance, psychotic disturbance, mood disturbance, and anxiety; M19.90 Unspecified osteoarthritis, unspecified site; I25.10 Atherosclerotic heart disease of native coronary artery without angina pectoris; E78.5 Hyperlipidemia, unspecified; H10.503 Unspecified blepharoconjunctivitis, bilateral; W19.XXXA Unspecified fall, initial encounter; Y92.099 Unspecified place in other non-institutional residence as the place of occurrence of the external cause; Z95.0 Presence of cardiac pacemaker